=== PATIENT | female | born 1995 | race Caucasian/White ===

== ENCOUNTER → 2017-04-08 | Outpatient (CLI) | payer BC, MEDICAID ==
[~2017-04-08] MED LIST: ANAP550T PO; DEPO150I IM; DEPO400I IM; SCOP1PAT TD
== END ==
LOC: HPND 08:35
PROVIDERS: ATTEND Obstetrics & Gynecology
DX: O35.8XX0 Maternal care for other (suspected) fetal abnormality and damage, not applicable or unspecified (principal)
CPT/HCPCS: 76811